=== PATIENT | male | born 1935 | race African-American/Black ===

== ENCOUNTER 2018-12-01 23:14 | Observation (INO) ==
[2018-12-01] MEDS ORDERED: FUROSEMIDE 100 MG/10 ML VIAL IV STA (23:42)
[2018-12-01] MEDS ORDERED: ONDANSETRON 4 MG/2 ML VIAL IV STA (23:42)
[2018-12-02 01:04] LABS: Basophils % 0.4 % (0.0-0.8); Eosinophils # 0.1 10*3/uL (0.0-0.87); Eosinophils % 1.3 % (0.00-10.9); Hematocrit 25.5 VOL% (42.0-52.0); Hemoglobin 8.6 GM/DL (14.0-18.0); Immature Granulocytes % 0.2 %; Immature Granulocytes Absolute 0.01 #; Lymphocytes # 0.5 10*3/uL (1.4-4.0); Lymphocytes % 10.3 % (21.2-54.2); Mean Corpuscular HGB Conc 33.7 GM/DL (32-36); Mean Corpuscular Volume 93.8 FL (87-102); Mean Platelet Volume 11.1 FL (9.6-12.0); Monocytes % 7.1 % (1.7-12.7); Neutrophils % 80.7 % (38.7-73.9); Red Blood Count 2.72 MC/CUMM (3.8-5.5); Red Cell Distribution Width 17.2 % (9.3-17.3); White Blood Count 4.7 T/CUMM (4-12)
[2018-12-02 01:05] LABS: Platelet Count 89 T/CUMM (130-400)
[2018-12-02 01:11] LABS: Apearance,Urine CLEAR (Clear); Bacteria,Urine Occasional /HPF (Few); Bilirubin,Urine Negative (Negative); Blood, Urine Small mg/dL (Negative); Glucose,Urine (UA) Negative (Negative); Hyaline Casts,Urine 1 /LPF (0-3); Ketones,Urine Negative (Negative); Mucus,Urine Occasional /LPF (Occasional); Nitrite,Urine Negative (Negative); Protein,Urine Negative; RBC,Urine 1 /HPF (0-4); Urine Color Straw (Yellow); Urine Specific Gravity 1.005 (1.001-1.035); Urine Urobilinogen < 2.0 EU/DL (0.2-1.0); WBC,Urine <1 /HPF (0-6)
[2018-12-02 01:13] LABS: INR 1.2; PT Patient Result 13.2 SECS (9.6-12.2)
[2018-12-02 01:29] LABS: Albumin 3.7 G/DL (3.4-5.0); Bilirubin,Total 0.9 MG/DL (0.2-1.0); Calcium 9.4 MG/DL (8.5-10.1); Osmolality,Calculated 270.8 MOS/KG (273-304); Total Protein 7.4 G/DL (6.4-8.3)
[2018-12-02 01:32] LABS: Hypochromasia Slight
[2018-12-02 01:33] LABS: Burr Cells 1+; Platelet Estimate Decreased; Polychromasia Few; Schistocytes Few
[2018-12-02] MEDS ORDERED: MAGNESIUM SULF RIDER 2 GM in PREMIX 1 EACH IV STA (01:39)
[2018-12-02] MEDS ORDERED: NICOTINE 21 MG/24 HR PATCH TRANSDERM PRN (02:08)
[2018-12-02] MEDS ORDERED: ONDANSETRON 4 MG/2 ML VIAL IV PRN (02:08)
[2018-12-02] MEDS ORDERED: diphenhydrAMINE CAP 25 MG CAPSULE PO PRN (02:08)
[2018-12-02] MEDS ORDERED: guaiFENesin/DM ER 600-30 MG TABLET PO PRN (02:08)
[2018-12-02] MEDS ORDERED: ACETAMINOPHEN 325 MG TABLET PO PRN (02:08)
[2018-12-02] MEDS ORDERED: BISACODYL 5 MG TABLET PO PRN (02:08)
[2018-12-02] MEDS ORDERED: MORPHINE 4 MG/1 ML VIAL IV PRN (02:08)
[2018-12-02 03:42] LABS: Risk Ratio 1.82; VLDL CHOLESTEROL 13.2 MG/DL
[2018-12-02 04:31] LABS: Albumin 3.6 G/DL (3.4-5.0); Calcium 9.6 MG/DL (8.5-10.1); Osmolality,Calculated 270.8 MOS/KG (273-304); Total Protein 7.2 G/DL (6.4-8.3)
[2018-12-02] MEDS: ALBUTEROL/IPRATROPIUM 3 ML NEB RESP TX SCH ×3 (07:39→20:32)
[2018-12-02] MEDS: FUROSEMIDE 40 MG/4 ML VIAL IV SCH ×2 (08:14→17:05)
[2018-12-02] MEDS ORDERED: MAGNESIUM SULF RIDER 2 GM in PREMIX 1 EACH IV ONE (11:52)
[2018-12-02] MEDS: PANTOPRAZOLE 40 MG TABLET PO SCH (12:29)
[2018-12-02] MEDS: POTASSIUM CHLORIDE 10 MEQ TABLET PO SCH (12:29)
[2018-12-02] MEDS: ROSUVASTATIN 10 MG TABLET PO SCH (12:29)
[2018-12-02] MEDS: ASPIRIN EC 81 MG TABLET PO SCH (12:30)
[2018-12-02] MEDS: metOLazone 5 MG TABLET PO SCH (12:30)
[2018-12-02] MEDS: MAGNESIUM CHLORIDE 64 MG TABLET PO SCH ×2 (12:30→21:23)
[2018-12-03] MEDS: ALBUTEROL/IPRATROPIUM 3 ML NEB RESP TX SCH ×3 (01:38→13:16)
[2018-12-03 05:16] LABS: Basophils % 0.2 % (0.0-0.8); Eosinophils % 0.4 % (0.00-10.9); Hemoglobin 9.8 GM/DL (14.0-18.0); Immature Granulocytes % 0.5 %; Immature Granulocytes Absolute 0.03 #; Lymphocytes # 0.5 10*3/uL (1.4-4.0); Lymphocytes % 8.8 % (21.2-54.2); Mean Corpuscular HGB Conc 33.8 GM/DL (32-36); Mean Corpuscular Volume 90.9 FL (87-102); Mean Platelet Volume 11.2 FL (9.6-12.0); Monocytes % 8.5 % (1.7-12.7); Neutrophils % 81.6 % (38.7-73.9); Platelet Count 111 T/CUMM (130-400); Red Blood Count 3.19 MC/CUMM (3.8-5.5); Red Cell Distribution Width 16.8 % (9.3-17.3); White Blood Count 5.7 T/CUMM (4-12)
[2018-12-03 05:31] LABS: Calcium 9.3 MG/DL (8.5-10.1); Osmolality,Calculated 274.7 MOS/KG (273-304)
[2018-12-03] MEDS ORDERED: POTASSIUM CHLORIDE 20 MEQ TABLET PO ONE (07:35)
[2018-12-03] MEDS ORDERED: MAGNESIUM SULF RIDER 2 GM in PREMIX 1 EACH IV ONE (07:35)
[2018-12-03] MEDS: ASPIRIN EC 81 MG TABLET PO SCH (09:00)
[2018-12-03] MEDS: PANTOPRAZOLE 40 MG TABLET PO SCH (09:00)
[2018-12-03] MEDS: MAGNESIUM CHLORIDE 64 MG TABLET PO SCH (09:00)
[2018-12-03] MEDS: FUROSEMIDE 40 MG/4 ML VIAL IV SCH (09:01)
[2018-12-03] MEDS: POTASSIUM CHLORIDE 10 MEQ TABLET PO SCH (09:01)
[2018-12-03] MEDS: ROSUVASTATIN 10 MG TABLET PO SCH (09:01)
[2018-12-03] MEDS: metOLazone 5 MG TABLET PO SCH (09:01)
[2018-12-03 11:53] VITALS: BP 95/63
== END 2018-12-03 16:44 | disposition home or self-care (01) ==
LOC: EDUNIT# → N.EDINP 23:14 → N.ED 23:14 → SUATTDRO 12-02 02:08 → N.TELEN 12-02 03:21
PROVIDERS: ADMIT Internal Medicine; ATTEND Internal Medicine

== ENCOUNTER 2018-12-05 17:30 | Inpatient (IN) ==
[2018-12-05 18:43] LABS: Basophils % 0.6 % (0.0-0.8); Eosinophils # 0.1 10*3/uL (0.0-0.87); Eosinophils % 1.6 % (0.00-10.9); Hematocrit 28.9 VOL% (42.0-52.0); Hemoglobin 9.9 GM/DL (14.0-18.0); Immature Granulocytes % 0.4 %; Immature Granulocytes Absolute 0.02 #; Lymphocytes # 0.5 10*3/uL (1.4-4.0); Lymphocytes % 9.9 % (21.2-54.2); Mean Corpuscular HGB Conc 34.3 GM/DL (32-36); Mean Platelet Volume 10.6 FL (9.6-12.0); Monocytes % 8.2 % (1.7-12.7); Neutrophils % 79.3 % (38.7-73.9); Platelet Count 104 T/CUMM (130-400); Red Blood Count 3.14 MC/CUMM (3.8-5.5); Red Cell Distribution Width 16.4 % (9.3-17.3); White Blood Count 4.9 T/CUMM (4-12)
[2018-12-05 18:48] LABS: Apearance,Urine CLEAR (Clear); Bacteria,Urine Occasional /HPF (Few); Bilirubin,Urine Negative (Negative); Blood, Urine Negative (Negative); Glucose,Urine (UA) Negative (Negative); Ketones,Urine Negative (Negative); Mucus,Urine Occasional /LPF (Occasional); Nitrite,Urine Negative (Negative); Protein,Urine Negative; RBC,Urine 2 /HPF (0-4); Squamous Epithelial Cell,Urine Occasional /HPF (0-10); Urine Color Yellow (Yellow); Urine Specific Gravity 1.006 (1.001-1.035); Urine Urobilinogen < 2.0 EU/DL (0.2-1.0); WBC,Urine 5 /HPF (0-6)
[2018-12-05 18:58] LABS: INR 1.2; PT Patient Result 13.2 SECS (9.6-12.2)
[2018-12-05 19:11] LABS: Albumin 3.6 G/DL (3.4-5.0); Bilirubin,Total 0.8 MG/DL (0.2-1.0); Osmolality,Calculated 261.6 MOS/KG (273-304)
[2018-12-05] MEDS ORDERED: FUROSEMIDE 40 MG/4 ML VIAL IV STA (19:46)
[2018-12-05] MEDS ORDERED: ONDANSETRON 4 MG/2 ML VIAL IV PRN (20:40)
[2018-12-05] MEDS ORDERED: ACETAMINOPHEN 325 MG TABLET PO PRN (20:40)
[2018-12-05] MEDS ORDERED: MAGNESIUM SULF RIDER 2 GM in PREMIX 1 EACH IV PRN (20:40)
[2018-12-05] MEDS ORDERED: MAGNESIUM SULF RIDER 4 GM in PREMIX 1 EACH IV PRN (20:40)
[2018-12-05] MEDS: traZODone 50 MG TABLET PO SCH (22:15)
[2018-12-05] MEDS: MAGNESIUM CHLORIDE 64 MG TABLET PO SCH (22:16)
[2018-12-05] MEDS: TERAZOSIN 10 MG CAPSULE PO SCH (22:16)
[2018-12-05] MEDS: ENOXAPARIN 30 MG/0.3 ML SYRINGE SUBCUT SCH (22:16)
[2018-12-05] MEDS: SUCRALFATE 1 GM TABLET PO SCH (22:18)
[2018-12-06] MEDS ORDERED: ALBUTEROL 2.5 MG/3 ML NEB RESP TX PRN (01:00)
[2018-12-06 07:29] LABS: Basophils % 0.5 % (0.0-0.8); Eosinophils # 0.1 10*3/uL (0.0-0.87); Eosinophils % 2.1 % (0.00-10.9); Hematocrit 30.4 VOL% (42.0-52.0); Hemoglobin 10.3 GM/DL (14.0-18.0); Immature Granulocytes % 0.3 %; Immature Granulocytes Absolute 0.01 #; Lymphocytes # 0.5 10*3/uL (1.4-4.0); Lymphocytes % 12.6 % (21.2-54.2); Mean Corpuscular HGB Conc 33.9 GM/DL (32-36); Mean Corpuscular Volume 91.6 FL (87-102); Mean Platelet Volume 10.9 FL (9.6-12.0); Neutrophils % 74.5 % (38.7-73.9); Platelet Count 109 T/CUMM (130-400); Red Blood Count 3.32 MC/CUMM (3.8-5.5); Red Cell Distribution Width 16.3 % (9.3-17.3); White Blood Count 3.9 T/CUMM (4-12)
[2018-12-06 08:00] LABS: Albumin 3.3 G/DL (3.4-5.0); Calcium 9.3 MG/DL (8.5-10.1); Osmolality,Calculated 260.6 MOS/KG (273-304); Total Protein 6.7 G/DL (6.4-8.3)
[2018-12-06] MEDS ORDERED: FUROSEMIDE 40 MG/4 ML VIAL IV SCH (08:00)
[2018-12-06] MEDS: SUCRALFATE 1 GM TABLET PO SCH ×2 (09:34→21:51)
[2018-12-06] MEDS: PANTOPRAZOLE 40 MG TABLET PO SCH (09:34)
[2018-12-06] MEDS: MAGNESIUM CHLORIDE 64 MG TABLET PO SCH ×2 (09:34→21:51)
[2018-12-06] MEDS: ASPIRIN EC 81 MG TABLET PO SCH (09:34)
[2018-12-06] MEDS: POTASSIUM CHLORIDE 10 MEQ TABLET PO SCH (09:35)
[2018-12-06] MEDS: metOLazone 5 MG TABLET PO SCH (09:35)
[2018-12-06] MEDS: BUDESONIDE/FORMOTEROL 160-4.5 INHALER 6 GM INH SCH ×2 (09:38→21:21)
[2018-12-06] MEDS: TAMSULOSIN 0.4 MG CAPSULE PO SCH (09:38)
[2018-12-06] MEDS: FUROSEMIDE 40 MG/4 ML VIAL IV SCH (19:00)
[2018-12-06] MEDS ORDERED: ROSUVASTATIN 10 MG TABLET PO SCH (21:00)
[2018-12-06] MEDS: traZODone 50 MG TABLET PO SCH (21:51)
[2018-12-06] MEDS: TERAZOSIN 10 MG CAPSULE PO SCH (21:51)
[2018-12-06] MEDS: ENOXAPARIN 30 MG/0.3 ML SYRINGE SUBCUT SCH (21:53)
[2018-12-07 08:24] VITALS: BP 116/85
[2018-12-07] MEDS: POTASSIUM CHLORIDE 10 MEQ TABLET PO SCH (09:09)
[2018-12-07] MEDS: PANTOPRAZOLE 40 MG TABLET PO SCH (09:09)
[2018-12-07] MEDS: metOLazone 5 MG TABLET PO SCH (09:09)
[2018-12-07] MEDS: MAGNESIUM CHLORIDE 64 MG TABLET PO SCH (09:09)
[2018-12-07] MEDS: ASPIRIN EC 81 MG TABLET PO SCH (09:09)
[2018-12-07] MEDS: TAMSULOSIN 0.4 MG CAPSULE PO SCH (09:09)
[2018-12-07] MEDS: FUROSEMIDE 40 MG/4 ML VIAL IV SCH (09:09)
[2018-12-07] MEDS: SUCRALFATE 1 GM TABLET PO SCH (09:09)
[2018-12-07] MEDS: BUDESONIDE/FORMOTEROL 160-4.5 INHALER 6 GM INH SCH (09:15)
== END 2018-12-07 13:55 | disposition home health service (06) | DRG 291 ==
LOC: EDUNIT# → EDBD → N.ED 17:30 → N.EDINP 20:40 → N.TELES 21:04
PROVIDERS: ADMIT Internal Medicine; ATTEND Internal Medicine

== ENCOUNTER 2020-03-29 03:36 | Observation (INO) ==
[2020-03-29] MEDS ORDERED: NICOTINE 21 MG/24 HR PATCH TRANSDERM PRN (08:09)
[2020-03-29] MEDS ORDERED: GLUCAGON 1 MG VIAL IM PRN (08:09)
[2020-03-29] MEDS ORDERED: DEXTROSE 50% 25 GM/50 ML VIAL IV PRN (08:09)
[2020-03-29] MEDS ORDERED: ONDANSETRON 4 MG/2 ML VIAL IV PRN (08:09)
[2020-03-29 09:00] LABS: Basophils % 0.3 % (0.0-0.8); Eosinophils % 0.2 % (0.00-10.9); Hematocrit 39.3 VOL% (42.0-52.0); Hemoglobin 13.6 GM/DL (14.0-18.0); Immature Granulocytes % 0.7 %; Immature Granulocytes Absolute 0.06 #; Lymphocytes # 0.8 10*3/uL (1.4-4.0); Lymphocytes % 9.5 % (21.2-54.2); Mean Corpuscular HGB Conc 34.6 GM/DL (32-36); Mean Corpuscular Volume 82.6 FL (87-102); Mean Platelet Volume 9.4 FL (9.6-12.0); Monocytes # 0.7 10*3/uL (0.11-0.8); Monocytes % 7.7 % (1.7-12.7); Neutrophils % 81.6 % (38.7-73.9); Platelet Count 238 T/CUMM (130-400); Red Blood Count 4.76 MC/CUMM (3.8-5.5); Red Cell Distribution Width 16.2 % (9.3-17.3); White Blood Count 8.7 T/CUMM (4-12)
[2020-03-29 09:25] LABS: Albumin 3.2 G/DL (3.4-5.0); Bilirubin,Total 0.9 MG/DL (0.2-1.0); Calcium 10.1 MG/DL (8.5-10.1); Osmolality,Calculated 288.1 MOS/KG (273-304); Potassium 3.1 MMOL/L (3.5-5.1); Total Protein 8.2 G/DL (6.4-8.3)
[2020-03-29] MEDS: PANTOPRAZOLE 40 MG TABLET PO SCH (09:29)
[2020-03-29] MEDS: BISACODYL 5 MG TABLET PO SCH (09:29)
[2020-03-29 10:03] LABS: Bacteria,Urine Occasional /HPF (Few); Bilirubin,Urine Negative (Negative); Blood, Urine Moderate mg/dL (Negative); Glucose,Urine (UA) Negative (Negative); Ketones,Urine Negative (Negative); Mucus,Urine Occasional /LPF (Occasional); Nitrite,Urine Negative (Negative); Protein,Urine Negative; RBC,Urine 31 /HPF (0-4); Urine Appearance CLEAR (Clear); Urine Color Yellow (Yellow); Urine Specific Gravity 1.009 (1.001-1.035); Urine Urobilinogen < 2.0 EU/DL (0.2-1.0); WBC,Urine 1 /HPF (0-6)
[2020-03-29] MEDS: POTASSIUM CHLORIDE 20 MEQ TABLET PO PRN ×4 (11:58→18:16)
[2020-03-29] MEDS: POLYETHYLENE GLYCOL POWDER 17 GM PACK PO SCH (11:58)
[2020-03-29] MEDS: SODIUM CHLORIDE 0.9% 1,000 ML IV SCH (12:03)
[2020-03-29] MEDS ORDERED: MAGNESIUM SULF RIDER 4 GM in PREMIX 1 EACH IV PRN (13:09)
[2020-03-29] MEDS ORDERED: MAGNESIUM SULF RIDER 2 GM in PREMIX 1 EACH IV PRN (13:09)
[2020-03-29] MEDS ORDERED: metOLazone 5 MG TABLET PO SCH (14:00)
[2020-03-29] MEDS ORDERED: FUROSEMIDE 80 MG TABLET PO SCH (14:00)
[2020-03-29] MEDS: ASPIRIN EC 81 MG TABLET PO SCH (14:20)
[2020-03-29] MEDS: ROSUVASTATIN 10 MG TABLET PO SCH (14:20)
[2020-03-29] MEDS: ASCORBIC ACID 500 MG TABLET PO SCH ×2 (14:20→20:40)
[2020-03-29] MEDS: APIXABAN 2.5 MG TABLET PO SCH ×2 (14:20→20:37)
[2020-03-29] MEDS: ALBUTEROL/IPRATROPIUM 3 ML NEB RESP TX SCH ×2 (14:44→19:52)
[2020-03-29] MEDS: ACETAMINOPHEN 325 MG TABLET PO PRN ×2 (16:26→20:38)
[2020-03-29] MEDS: carvediloL 3.125 MG TABLET PO SCH (17:37)
[2020-03-29] MEDS: MENTHOL/ZINC OXIDE OINT 71 GM JAR TOP SCH (20:39)
[2020-03-30 01:34] LABS: Risk Ratio 2.83
[2020-03-30 01:36] LABS: Basophils % 0.4 % (0.0-0.8); Eosinophils % 0.3 % (0.00-10.9); Hematocrit 41.5 VOL% (42.0-52.0); Immature Granulocytes % 1.3 %; Immature Granulocytes Absolute 0.09 #; Lymphocytes # 0.8 10*3/uL (1.4-4.0); Lymphocytes % 11.1 % (21.2-54.2); Mean Corpuscular HGB Conc 33.7 GM/DL (32-36); Mean Corpuscular Volume 84.9 FL (87-102); Mean Platelet Volume 9.6 FL (9.6-12.0); Monocytes # 0.6 10*3/uL (0.11-0.8); Monocytes % 7.8 % (1.7-12.7); Neutrophils % 79.1 % (38.7-73.9); Platelet Count 243 T/CUMM (130-400); Red Blood Count 4.89 MC/CUMM (3.8-5.5); Red Cell Distribution Width 16.3 % (9.3-17.3); White Blood Count 7.1 T/CUMM (4-12)
[2020-03-30 01:39] LABS: Calcium 10.1 MG/DL (8.5-10.1); Osmolality,Calculated 288.9 MOS/KG (273-304); Potassium 4.3 MMOL/L (3.5-5.1)
[2020-03-30] MEDS: ALBUTEROL/IPRATROPIUM 3 ML NEB RESP TX SCH ×3 (02:00→13:05)
[2020-03-30] MEDS: ACETAMINOPHEN 325 MG TABLET PO PRN (05:57)
[2020-03-30] MEDS: carvediloL 3.125 MG TABLET PO SCH (10:16)
[2020-03-30] MEDS: SODIUM CHLORIDE 0.9% 1,000 ML IV SCH (10:16)
[2020-03-30] MEDS: ASCORBIC ACID 500 MG TABLET PO SCH (10:17)
[2020-03-30] MEDS: APIXABAN 2.5 MG TABLET PO SCH (10:17)
[2020-03-30] MEDS: ROSUVASTATIN 10 MG TABLET PO SCH (10:17)
[2020-03-30] MEDS: ASPIRIN EC 81 MG TABLET PO SCH (10:17)
[2020-03-30] MEDS: PANTOPRAZOLE 40 MG TABLET PO SCH (10:18)
[2020-03-30] MEDS: BISACODYL 5 MG TABLET PO SCH (10:18)
[2020-03-30] MEDS: MENTHOL/ZINC OXIDE OINT 71 GM JAR TOP SCH (10:19)
[2020-03-30] MEDS: POLYETHYLENE GLYCOL POWDER 17 GM PACK PO SCH (10:19)
[2020-03-30] MEDS ORDERED: SODIUM CHLORIDE 0.9% 1,000 ML IV ONE (12:00)
[2020-03-30 12:20] VITALS: BP 97/78
== END 2020-03-30 15:20 | disposition home health service (06) ==
LOC: N.TELES → SUATTDRO 06:59
PROVIDERS: ADMIT Internal Medicine Cardiovascular Disease; ATTEND Internal Medicine